=== PATIENT | male | born 1950 | race Caucasian/White ===

== ENCOUNTER 2016-11-25 12:44 | Emergency (ER) | payer OTHER, MEDICARE ==
[~2016-11-25] VITALS: Ht 182.9 cm; Wt 108.0 kg
[2016-11-25 12:48] VITALS: BP 128/65; PULSE 94; RESP 18; TEMP 98.4; O2SAT 97
[2016-11-25] MEDS ORDERED: LUPR3.75 IM (13:13)
[2016-11-25] MEDS ORDERED: LEVE250 PO (13:13)
[2016-11-25] MEDS ORDERED: ASPI81CH37 CHEW (13:13)
[2016-11-25] MEDS ORDERED: SIMV40TA PO (13:13)
[2016-11-25 13:27] LABS: AUTOMATED NEUTROPHIL # 3.8 TH/MM3 (1.8-7.7); BASOPHIL % 0.5 % (0.0-2.0); EOSINOPHIL # 0.3 TH/MM3 (0-0.4); EOSINOPHIL % 4.4 % (0.0-4.0); HEMATOCRIT 37.6 % (39.0-51.0); HEMO FLAGS DIFF FINAL; LYMPH % 28.5 % (9.0-44.0); LYMPHOCYTE # 1.8 TH/MM3 (1.0-4.8); MEAN CELL VOLUME 87.2 FL (80.0-100.0); MEAN CORPUSCULAR HEMOGLOBIN 30.4 PG (27.0-34.0); MEAN CORPUSCULAR HGB CONC 34.9 % (32.0-36.0); MONO % 8.2 % (0.0-8.0); NEUT % 58.4 % (16.0-70.0); PLATELET COUNT 150 TH/MM3 (150-450); RED BLOOD COUNT 4.31 MIL/MM3 (4.50-5.90); RED CELL DISTRIBUTION WIDTH 11.7 % (11.6-17.2); WHITE BLOOD COUNT 6.4 TH/MM3 (4.0-11.0)
[2016-11-25 13:36] LABS: POTASSIUM 3.5 MEQ/L (3.5-5.1)
[2016-11-25 13:39] LABS: BICARBONATE 24.3 MEQ/L (21.0-32.0); MAGNESIUM 2.1 MG/DL (1.5-2.5)
--- NOTE | 2016-11-25 14:03 | PD ---
HPI Chief Complaint: Seizure Time Seen by Provider: 12:52 Travel History International Travel<30 days: No Contact w/Intl Traveler<30days: No Traveled to known affect area: No History of Present Illness HPI Patient is a 66-year-old male presents emergency department for evaluation of recurrent seizure. Patient apparently was recently diagnosed with seizure disorder at [facility] in August of this year. He is coming by his who states that he was diagnosed with prostate cancer in his first infusion of treatment he had a seizure then. He was also postulated that it may have been the barium contrast because he had a seizure after this as well. Today the patient was lying in bed and had a seizure. His describes that he let out a long cry and then had tonic contracture of both upper extremities and lower extremity seemed to be spared. She states that usually these are his episodes but afterwards he is confused but only for a few minutes. She states that today he was very quick to come out of it and able to tell her where he was. His states he was lying in bed when this happened and she denies any trauma to his person. They've seen Dr. Saldana and per the Dr. Saldana is not been convinced that these are actual seizures. She states that he was admitted for a [facility] and had "every test" including EEG CAT scan and MRIs. She states that due to these tests the patient was subsequently diagnosed with a lymphoma which they're just watching rate now. PFSH Past Medical History Hx Anticoagulant Therapy: Yes (asa) Cancer: Yes (prostate and lymphoma) High Cholesterol: Yes Diminished Hearing: No Immunizations Current: Yes Seizures: Yes Tetanus Vaccination: Unknown Influenza Vaccination: No Past Surgical History Surgical History: No Previous Surgery Social History Alcohol Use: Yes (occ) Tobacco Use: Yes (5-6 cigs) Substance Use: No Allergies-Medications (Allergen,Severity, Reaction): Coded Allergies: No Known Allergies (Unverified , 11/25/16) Reported Meds & Prescriptions Reported Meds & Active Scripts Active Keppra (Levetiracetam) 500 Mg Tab 500 Mg PO BID Reported Lupron Depot Inj Kit (Leuprolide Acetate) 3.75 Mg Kit 3.75 Mg IM Q28D Keppra (Levetiracetam) 250 Mg Tab 250 Mg PO BID Simvastatin 40 Mg Tab 40 Mg PO HS Aspirin Low Dose (Aspirin) 81 Mg Chew 81 Mg CHEW DAILY Review of Systems Except as stated in HPI: all other systems reviewed are Neg Physical Exam Narrative GENERAL: Well-developed well-nourished no obvious distress. SKIN: Focused skin assessment warm/dry. No bruising nor lacerations seen on his person. HEAD: Atraumatic. Normocephalic. EYES: Pupils equal and round. No scleral icterus. No injection or drainage. ENT: No nasal bleeding or discharge. Mucous membranes pink and moist. No tongue lacerations seen. NECK: Trachea midline. No JVD. CARDIOVASCULAR: Regular rate and rhythm. No murmur appreciated. RESPIRATORY: No accessory muscle use. Clear to auscultation. Breath sounds equal bilaterally. GASTROINTESTINAL: Abdomen soft, non-tender, nondistended. Hepatic and splenic margins not palpable. MUSCULOSKELETAL: No obvious deformities. No clubbing. No cyanosis. No edema. NEUROLOGICAL: Awake and alert. No obvious cranial nerve deficits. Motor grossly within normal limits. Normal speech. PSYCHIATRIC: Appropriate mood and affect; insight and judgment normal. Data Data Last Documented VS Vital Signs Date Time Temp Pulse Resp B/P Pulse Ox O2 Delivery O2 Flow Rate FiO2 11/25/16 14:09 76 18 113/69 98 Room Air 11/25/16 12:48 98.4 Orders Complete Blood Count With Diff (11/25/16 13:18) Basic Metabolic Panel (Bmp) (11/25/16 13:18) Magnesium (Mg) (11/25/16 13:18) Phosphorus (Po4) (11/25/16 13:18) Levetiracetam (Keppra) (11/25/16 14:15) Labs Laboratory Tests Test 11/25/16 12:30 White Blood Count 6.4 TH/MM3 Red Blood Count 4.31 MIL/MM3 Hemoglobin 13.1 GM/DL Hematocrit 37.6 % Mean Corpuscular Volume 87.2 FL Mean Corpuscular Hemoglobin 30.4 PG Mean Corpuscular Hemoglobin 34.9 % Concent Red Cell Distribution Width 11.7 % Platelet Count 150 TH/MM3 Mean Platelet Volume 8.0 FL Neutrophils (%) (Auto) 58.4 % Lymphocytes (%) (Auto) 28.5 % Monocytes (%) (Auto) 8.2 % Eosinophils (%) (Auto) 4.4 % Basophils (%) (Auto) 0.5 % Neutrophils # (Auto) 3.8 TH/MM3 Lymphocytes # (Auto) 1.8 TH/MM3 Monocytes # (Auto) 0.5 TH/MM3 Eosinophils # (Auto) 0.3 TH/MM3 Basophils # (Auto) 0.0 TH/MM3 CBC Comment DIFF FINAL Differential Comment Sodium Level 143 MEQ/L Potassium Level 3.5 MEQ/L Chloride Level 108 MEQ/L Carbon Dioxide Level 24.3 MEQ/L Anion Gap 11 MEQ/L Blood Urea Nitrogen 11 MG/DL Creatinine 0.92 MG/DL Estimat Glomerular Filtration 82 ML/MIN Rate Random Glucose 86 MG/DL Calcium Level 9.1 MG/DL Phosphorus Level 2.5 MG/DL Magnesium Level 2.1 MG/DL MDM Medical Decision Making Medical Screen Exam Complete: Yes Emergency Medical Condition: Yes Differential Diagnosis Recurrent seizure, lecture led abnormality, pseudoseizures, night terrors. Narrative Course Patient roomed in the emergency department, he appears well in no obvious distress. Was monitored in the ER and had no seizure-like activity. Patient's basic labs CBC and electrolytes were within normal limits. The patient was discussed with Dr. Saldana and states he does remember this patient and reiterates that he was unconvinced that the patient actually having seizure disorder. He recommended however to increase the Keppra from 250 twice a day to 500 twice a day and follow-up with his office as scheduled and he will make further decisions then. This was discussed with the and the patient were agreeable. Discussed first aid for seizures and discussed prevention of head trauma. Nothing in the mouth when patient has a seizure. He is stable for discharge at this time. Diagnosis Primary Impression: Recurrent seizures Med/Other Pt SpecificInfo: Prescription(s) given Scripts Levetiracetam (Keppra)500 Mg [id number] Mg PO BID #60 TAB Ref 0 Prov:Benjamin Miller MD 11/25/16 Disposition: 01 DISCHARGE HOME Condition: Stable Benjamin Miller MD Nov 25, 2016 14:03
[2016-11-25 14:09] VITALS: BP 113/69; PULSE 76; RESP 18; O2SAT 98
[2016-11-25] MEDS ORDERED: LEVE500 PO (14:10)
[2016-11-25] MEDS ORDERED: levETIRAcetam 500 MG TAB PO ONE (14:15)
== END 2016-11-25 14:46 | disposition home or self-care (01) ==
LOC: PHED 12:44
DX: G40.909 Epilepsy, unspecified, not intractable, without status epilepticus (principal); E78.00 Pure hypercholesterolemia, unspecified; F17.210 Nicotine dependence, cigarettes, uncomplicated; Z79.82 Long term (current) use of aspirin
CPT/HCPCS: 80048; 83735; 84100; 85025; 99283